=== PATIENT | male | born 1960 | race Caucasian/White ===

== ENCOUNTER → 2022-01-15 | Outpatient (CLI) | payer OTHER ==
--- NOTE | 2022-01-15 10:45 | RAD ---
XR LUMBAR SPINE 2-3V History: Low back pain Comparison: None. Technique: 2 views of the lumbar spine. Findings: There are 5 non-rib bearing lumbar vertebral segments. There is no evidence of fracture. No destructive osseous lesions. Alignment is normal. Mild lower lumbar facet hypertrophy. Multilevel degenerative endplate changes with marginal osteophytes. Mild disc space narrowing L4-L5 a nd moderate disc space narrowing L5-S1. Mild right inferior sacroiliac sclerosis. Atherosclerotic calcifications of the aorta and multiple pelvic phleboliths. Right upper quadrant cho lecystectomy clips. IMPRESSION: 1. Lumbar spondylosis without acute abnormality. Electronically signed by: Vniod Raygoza MD (01/15/2022 10:43 AM) [id number]
== END ==
LOC: RAD 08:19
PROVIDERS: ATTEND Family Medicine
DX: Z02.71 Encounter for disability determination (principal); M47.816 Spondylosis without myelopathy or radiculopathy, lumbar region; M48.061 Spinal stenosis, lumbar region without neurogenic claudication; M25.78 Osteophyte, vertebrae; I70.0 Atherosclerosis of aorta; Z90.49 Acquired absence of other specified parts of digestive tract
CPT/HCPCS: 72100